=== PATIENT | female | born 1995 | race Caucasian/White ===

== ENCOUNTER → 2025-01-30 11:19 | Outpatient (REF) | payer OTHER, SELFPAY | LOC: PNTC 11:19 | PROVIDERS: ATTENDING PHYSICIAN Obstetrics & Gynecology | DX: Z36.0 Encounter for antenatal screening for chromosomal anomalies (principal); Z36.82 Encounter for antenatal screening for nuchal translucency; O31.21X0 Continuing pregnancy after intrauterine death of one fetus or more, first trimester, not applicable or unspecified | CPT/HCPCS: 76801; 76813 ==

== ENCOUNTER → 2025-03-02 16:55 | Outpatient (REF) | payer OTHER, SELFPAY | LOC: PNTC 16:55 | PROVIDERS: ATTENDING PHYSICIAN Obstetrics & Gynecology | DX: O31.22X0 Continuing pregnancy after intrauterine death of one fetus or more, second trimester, not applicable or unspecified (principal) | CPT/HCPCS: 76805 ==